=== PATIENT | male | born 1985 | race Caucasian/White ===

== ENCOUNTER 2023-10-06 23:29 | Emergency (ER) | payer BC, OTHER ==
[2023-10-07] MEDS ORDERED: Tetracaine HCl/PF 0.5% 4 ML Bottle EYERT ONE (00:24)
[2023-10-07] MEDS ORDERED: Ofloxacin 0.3% Ophth Soln 5 ML Bottle EYERT ONE (00:57)
[2023-10-07] MEDS ORDERED: predniSONE 20 MG Tab PO ONE (01:04)
== END 2023-10-07 01:49 | disposition home or self-care (01) ==
LOC: MW.ED 23:29
DX: S05.01XA Injury of conjunctiva and corneal abrasion without foreign body, right eye, initial encounter (principal); H20.9 Unspecified iridocyclitis; X08.8XXA Exposure to other specified smoke, fire and flames, initial encounter
CPT/HCPCS: 99283; A9270; J3490